=== PATIENT | male | born 1950 | race Caucasian/White ===

== ENCOUNTER → 2017-08-01 | Outpatient (CLI) | payer MEDICARE, BC ==
--- NOTE | 2017-08-01 14:21 | NM ---
EXAMINATION TYPE: NM bone 3 phase DATE OF EXAM: 08/01/2017 COMPARISON: Plain film from outside institution 07/28/2017 HISTORY: Pain in right knee Triple phase bone scintigraphy was performed following the injection of26 mCi Tc 99m MDP. Immediate images and 5.5 hours post injection images acquired of the knees. FINDINGS: Increased blood flow and blood pool activity noted about the right knee arthroplasty. Some increased uptake noted at the level of the proximal tibia especially at the medial aspect and posteriorly at th e right knee is compared to the left on delayed images. Some increased uptake noted lateral to the fe moral component the posterior aspect of the right knee is present. Photopenic defects are present com patible with patient's arthroplasty changes. IMPRESSION: Correlate to exclude infection within the right knee, white blood cell scan may be of benefit
== END | disposition home or self-care (01) ==
LOC: RADNMMAIN 07:19
PROVIDERS: ATTEND Orthopaedic Surgery
DX: Z09 Encounter for follow-up examination after completed treatment for conditions other than malignant neoplasm (principal); M25.462 Effusion, left knee; M25.461 Effusion, right knee; M65.88 Other synovitis and tenosynovitis, other site; Z96.653 Presence of artificial knee joint, bilateral
CPT/HCPCS: 78315; A9503

== ENCOUNTER → 2017-08-10 | Outpatient (CLI) | payer MEDICARE, BC ==
--- NOTE | 2017-08-11 12:19 | NM ---
EXAMINATION TYPE: NM WBC limited DATE OF EXAM: 08/11/2017 COMPARISON: Outside x-ray 07/28/2017, bone scan 08/01/2017 HISTORY: Pain in the right knee TECHNIQUE: Following administration of 13.35 mCi Tc99m Ceretec. Images obtained 4 hour(s) and 23 ho ur(s) post injection. FINDINGS: There is faint asymmetric uptake surrounding the right prostheses which is less impressive compared t o the recent bone scan. IMPRESSION: There are persistent asymmetric area increased activity surrounding the right knee prostheses relativ e to the left. Findings are less impressive on the WBC scan relative to the bone scan. Aseptic loosen ing and infection in the differential diagnosis. Correlate with arthrocentesis.
== END | disposition home or self-care (01) ==
LOC: RADNMMAIN 06:50
PROVIDERS: ATTEND Orthopaedic Surgery
DX: M67.861 Other specified disorders of synovium, right knee (principal); M67.862 Other specified disorders of synovium, left knee; M65.862 Other synovitis and tenosynovitis, left lower leg; M65.861 Other synovitis and tenosynovitis, right lower leg; Z96.653 Presence of artificial knee joint, bilateral; Z85.9 Personal history of malignant neoplasm, unspecified
CPT/HCPCS: 78805; A9569